=== PATIENT | female | born 1965 | race Caucasian/White ===

== ENCOUNTER → 2020-11-19 | Outpatient (CLI) | payer OTHER ==
[~2020-11-19] MED LIST: 24 HOUR ALLERG9.9 ML; BAYER CHEWABLE81 MG PO; CLARITIN10 M2 PO; FLEXERIL 10 MG10 MG PO; NAPROSYN500 MG PO; NORCO 10-325 T1 EACH PO; PANTOPRAZOLE SO40 MG PO; PATADAY2.5 ML EYEBOTH; PERCOCET 5-3251 EACH PO; PRAVACHOL40 MG PO; PROTONIX20 MG PO; PROVENTIL HFA6.7 GM INH; SOLARAZE100 GM TP; SYMBICORT 16010.2 GM INH; SYNTHROID125 MCG PO; TOPROL XL25 MG PO; TYLENOL ARTHRITIS PO; VENTOLIN HFA 66.7 GM INH; VITAMIN D50000 UNIT PO; Voltaren Gel 1% TOP; ZOFRAN ODT 4 MG4 MG PO
== END ==
LOC: KOH-I 11-15 15:30
DX: J30.9 Allergic rhinitis, unspecified (principal); R91.8 Other nonspecific abnormal finding of lung field
CPT/HCPCS: 71250

== ENCOUNTER → 2020-12-19 | Outpatient (CLI) | payer OTHER | LOC: EXRD 15:00 | DX: M79.644 Pain in right finger(s) (principal) | CPT/HCPCS: 73130 ==

== ENCOUNTER → 2021-02-20 | Outpatient (CLI) | payer OTHER | LOC: HEART 5 14:00 | DX: R00.2 Palpitations (principal) ==

== ENCOUNTER → 2021-12-12 | Outpatient (CLI) | payer OTHER | LOC: KOH-I 11-24 10:30 | DX: F17.210 Nicotine dependence, cigarettes, uncomplicated (principal); R91.8 Other nonspecific abnormal finding of lung field | CPT/HCPCS: 71271 ==

== ENCOUNTER → 2022-03-24 | Outpatient (CLI) | payer OTHER | LOC: NM 02-27 08:00 | DX: R07.9 Chest pain, unspecified (principal); R06.02 Shortness of breath | CPT/HCPCS: 78452; 93017; A9502; J2785 ==

== ENCOUNTER → 2022-04-24 | Outpatient (CLI) | payer OTHER ==
[2022-04-24 16:31] LABS: BUN/CREATININE RATIO 15 (0-10)
== END ==
LOC: LAB 15:46
PROVIDERS: Nurse Practitioner Family
DX: E03.9 Hypothyroidism, unspecified (principal)
CPT/HCPCS: 36415; 80053; 84439; 84443

== ENCOUNTER → 2022-05-07 | Outpatient (CLI) | payer OTHER | LOC: EXRD 05-04 13:30 | DX: R42 Dizziness and giddiness (principal) | CPT/HCPCS: 93880 ==